=== PATIENT | female | born 1945 | race Caucasian/White ===

== ENCOUNTER → 2016-06-27 | Outpatient (REF) | payer MEDICARE ==
[~2016-06-27] MED LIST: ADV500INH INH; BISO5TAB5 PO; DICL75TA PO; FURO40TA2 PO; GLIP10TA6 PO; HYDR1SOL PO; INSUH10VL SC; INSULADS SC; KLOR1POW2 PO; LEVO100T5 PO; LISI-542 PO; LISI10TA4 PO; METF1000 PO; OMEP40CA2 PO; PROA1AER IN; SIMV40TA2 PO; TIZA4CAP3 PO
== END ==
LOC: M SFHCPLAZ 11:29
PROVIDERS: ATTEND Family Medicine
DX: R30.0 Dysuria (principal)
CPT/HCPCS: 87088; 87186; G0463

== ENCOUNTER 2016-08-21 10:05 | Emergency (ER) | payer MEDICARE ==
[2016-08-21] MEDS ORDERED: ATROPINE SULF 1MG/10ML SYRINGE (J0461) ONE (10:41)
[2016-08-21] MEDS ORDERED: EPINEPHrine 1MG/10ML SYRINGE 1.5IN ONE (10:41)
[2016-08-21] MEDS ORDERED: EPINEPHrine 1MG/10ML SYRINGE 1.5IN IV STA (11:49)
[2016-08-21] MEDS ORDERED: ATROPINE SULF 1MG/10ML SYRINGE (J0461) IV STA (11:49)
== END 2016-08-21 13:00 | disposition expired ==
LOC: M ED 10:40
DX: I46.9 Cardiac arrest, cause unspecified (principal)
CPT/HCPCS: 31500; 92950; 96374; 96375; 99285; J0461